=== PATIENT | male | born 1975 | race Caucasian/White ===

== ENCOUNTER 2022-10-24 19:15 | Inpatient (IN) | payer OTHER ==
[~2022-10-24] VITALS: Ht 188 cm; Wt 136.5 kg
[2022-10-24] MEDS ORDERED: SODIUM CHLORIDE 0.9% 1,000 ML IV ONE (19:45)
[2022-10-24] MEDS ORDERED: ADENOSINE 6 MG/2 ML INJ IV ONE ×5 (19:45→21:03)
[2022-10-24 20:15] LABS: Basophils # (auto) 0.1 10 ^3/uL (0-0.2); Basophils % (auto) 0.5 % (0.0-2.0); Eosinophils # (auto) 1.1 10 ^3/uL (0-0.8); Eosinophils % (auto) 10.7 % (0.0-7.0); Hematocrit 38.8 % (41.0-53.0); Hemoglobin 12.8 g/dL (13.5-17.5); Lymphocytes # (auto) 2.5 10 ^3/uL (0.4-5.4); Lymphocytes % (auto) 24.3 % (10.0-50.0); Mean Corpuscular Hemoglobin 29.5 pg (28.0-32.0); Mean Corpuscular Hgb Conc. 33.1 g/dL (32.0-36.0); Mean Corpuscular Volume 89.3 fL (80.0-100.0); Monocytes # (auto) 0.7 10 ^3/uL (0-1.3); Monocytes % (auto) 6.6 % (0.0-12.0); Neutrophils % (auto) 57.9 % (37.0-80.0); Red Blood Cells 4.35 10^6/uL (4.5-5.90); Red Cell Distribution Width 13.2 % (11.8-14.3); White Blood Cell 10.3 10^3/uL (4.4-10.8)
[2022-10-24] MEDS ORDERED: dilTIAZem 25 MG/5 ML VIAL IV ONE ×4 (20:15→21:30)
[2022-10-24 20:35] LABS: INR 0.97 (0.9-1.15); Partial Thromboplastin Time 28.5 sec (24.6-33.4)
[2022-10-24] MEDS ORDERED: AMIODARONE HCL (50 MG/ ML) 3 ML VIAL IV ONE ×3 (20:37→21:58)
[2022-10-24] MEDS ORDERED: LORazepam 2MG/ML-1ML VIAL IV ONE (20:45)
[2022-10-24] MEDS ORDERED: AMIODARONE HCL 150 MG in D5W 5% 100 ML IV ONE ×2 (20:45→21:45)
[2022-10-24 21:16] LABS: Albumin 3.5 g/dL (3.4-5.0); Blood Urea Nitrogen 10 mg/dL (7-18); Chloride 109 mmol/L (98-107); Glucose 87 mg/dL (74-106); Potassium 4.1 mmol/L (3.5-5.1); Sodium 142 mmol/L (136-145)
[2022-10-24 21:18] LABS: Alanine Aminotransferase 22 U/L (16-61); Anion Gap 10 (5-15); Aspartate Aminotransferase 9 U/L (15-37); BUN/Creatinine Ratio 9.4; Carbon Dioxide 23 mmol/L (21-32); GFR African American 97 mL/min; GFR Non-African American 80 mL/min
[2022-10-24 21:20] LABS: Alkaline Phosphatase 78 U/L (45-117); Bilirubin, Total 0.3 mg/dL (0.2-1.0); Total Protein 6.9 g/dL (6.4-8.2)
[2022-10-24] MEDS ORDERED: MORPHINE SULFATE 4 MG/ML SYR/VIAL IV ONE (21:30)
[2022-10-24] MEDS ORDERED: methylPREDNISolone SOD SUCC 125 MG/2 ML VL IV ONE (21:30)
[2022-10-24] MEDS ORDERED: ONDANSETRON HCL 4 MG/2 ML VIAL IV ONE (21:30)
[2022-10-24] MEDS ORDERED: ENOXAPARIN SOD 100 MG/1 ML SYRINGE SC ONE (21:45)
[2022-10-24] MEDS ORDERED: AMIODARONE 450mg/250ml AE 250 ML IV SCH (21:45)
[2022-10-24 22:16] LABS: Urine Bacteria MOD /hpf (None Seen); Urine Blood Negative /uL (Negative); Urine Specific Gravity 1.007 (1.001-1.035); Urine WBC 9 /hpf (0 - 3)
[2022-10-24 22:23] LABS: Alcohol, Urine < 3.0 mg/dL (0-10); Amphetamine Screen, Urine NEGATIVE (NEGATIVE); Barbiturate Scree,Urine NEGATIVE (NEGATIVE); Benzodiazephine Screen, Urine NEGATIVE (NEGATIVE); Cannabinoid Screen, Urine NEGATIVE (NEGATIVE); Cocaine Screen, Urine NEGATIVE (NEGATIVE); Opiate Scree,Urine NEGATIVE (NEGATIVE); Phencyclidine Screen, Urine NEGATIVE (NEGATIVE)
[2022-10-24] MEDS ORDERED: TEMAZEPAM 15 MG CAP PO PRN (23:15)
[2022-10-24] MEDS ORDERED: MORPHINE SULFATE INJ 2 MG/ml SYRG IV PRN (23:15)
[2022-10-24] MEDS ORDERED: ONDANSETRON HCL 4 MG/2 ML VIAL IV PRN (23:15)
[2022-10-24] MEDS ORDERED: NITROGLYCERIN 0.4 MG SL TAB SL PRN (23:15)
[2022-10-25] MEDS ORDERED: dilTIAZem 25 MG/5 ML VIAL IV ONE (02:00)
[2022-10-25] MEDS: AMIODARONE 450mg/250ml AE 250 ML IV SCH ×2 (04:25→07:45)
[2022-10-25 06:11] LABS: Anion Gap 9 (5-15); BUN/Creatinine Ratio 9.3; Blood Urea Nitrogen 9 mg/dL (7-18); Calcium 8.7 mg/dL (8.5-10.1); Carbon Dioxide 22 mmol/L (21-32); Chloride 113 mmol/L (98-107); GFR African American 107 mL/min; GFR Non-African American 89 mL/min; Glucose 91 mg/dL (74-106); Potassium 4.2 mmol/L (3.5-5.1); Sodium 144 mmol/L (136-145)
[2022-10-25] MEDS: ACETAMINOPHEN 325 MG TAB PO PRN ×3 (06:27→21:06)
[2022-10-25] MEDS ORDERED: dilTIAZem 125mg/125ml BAG KIT 125 ML IV SCH (08:45)
[2022-10-25] MEDS ORDERED: METOPROLOL TARTRATE 1MG/1ML-5ML VIAL IV ONE (08:45)
[2022-10-25] MEDS: LEVALBUTEROL HCL 1.25 MG/3 ML NEB NEB SCH ×4 (09:00→23:43)
[2022-10-25] MEDS ORDERED: ENOXAPARIN SOD 40 MG/0.4 ML SYRINGE SC SCH (10:00)
[2022-10-25] MEDS: BUDESONIDE (INHALATION) 0.5 MG/2 ML NEB NEB SCH ×2 (11:30→20:24)
[2022-10-25] MEDS: cefTRIAXone 1GM/50ML D5W 50 ML IV SCH (12:02)
[2022-10-25] MEDS: PANTOPRAZOLE 40 MG TAB PO SCH (12:04)
[2022-10-25] MEDS: ENOXAPARIN SOD 150 MG/1 ML SYRINGE SC SCH ×2 (12:08→23:26)
[2022-10-25] MEDS ORDERED: DIGOXIN (250MCG/ML) 2 ML AMPULE IV ONE (12:30)
[2022-10-25 13:25] VITALS: BP 123/61
[2022-10-25 13:55] LABS: Magnesium 2.1 mg/dL (1.6-2.6)
[2022-10-25] MEDS ORDERED: ADENOSINE 6 MG/2 ML INJ IV ONE ×2 (14:15)
[2022-10-25] MEDS ORDERED: fentaNYL CITRATE 100 MCG/2 ML VL IV ONE ×2 (14:45→15:00)
[2022-10-25] MEDS ORDERED: ONDANSETRON HCL 4 MG/2 ML VIAL IV ONE (14:45)
[2022-10-25] MEDS ORDERED: MIDAZOLAM HCL 2MG/2ML 2ml VIAL (1mg/ml) IV ONE ×3 (14:45→17:00)
[2022-10-25] MEDS ORDERED: LIDOCAINE VISCOUS 2% 15ML UD PO ONE (14:45)
[2022-10-25] MEDS ORDERED: MIDAZOLAM HCL 2MG/2ML 2ml VIAL (1mg/ml) ONE (15:41)
[2022-10-25] MEDS ORDERED: AMIODARONE HCL 200 MG TAB PO ONE (16:00)
[2022-10-25] MEDS ORDERED: ATORVASTATIN 20 MG TAB PO SCH (22:00)
[2022-10-25] MEDS: AMIODARONE HCL 200 MG TAB PO SCH (23:25)
[2022-10-26 03:39] VITALS: BP 124/84
[2022-10-26 05:00] VITALS: BP 118/85
[2022-10-26 05:32] LABS: BUN/Creatinine Ratio 10.6; Calcium 8.8 mg/dL (8.5-10.1); Potassium 4.3 mmol/L (3.5-5.1)
[2022-10-26] MEDS: LEVALBUTEROL HCL 1.25 MG/3 ML NEB NEB SCH (06:00)
[2022-10-26] MEDS: ACETAMINOPHEN 325 MG TAB PO PRN (06:17)
[2022-10-26 09:15] VITALS: BP 116/78
[2022-10-26] MEDS: ENOXAPARIN SOD 150 MG/1 ML SYRINGE SC SCH (09:52)
[2022-10-26] MEDS: cefTRIAXone 1GM/50ML D5W 50 ML IV SCH (09:54)
[2022-10-26] MEDS: AMIODARONE HCL 200 MG TAB PO SCH (09:54)
[2022-10-26] MEDS: PANTOPRAZOLE 40 MG TAB PO SCH (10:00)
[2022-10-26] MEDS ORDERED: DIGOXIN 0.125 MG TAB PO SCH (10:00)
[2022-10-26] MEDS ORDERED: METOPROLOL SUCCINATE XL 50 MG TAB PO SCH (10:00)
[2022-10-26 13:27] VITALS: BP 113/81
[2022-10-26] MEDS ORDERED: APIX5TAB PO (15:41)
[2022-10-26] MEDS ORDERED: AMIO200T4 PO (15:41)
[2022-10-26] MEDS ORDERED: ATOR20TA50 PO (15:41)
[2022-10-26] MEDS ORDERED: METO25TA93 PO (15:41)
[2022-10-26 16:49] VITALS: BP 123/65
[2022-10-26] MEDS ORDERED: APIXABAN 5 MG TAB PO SCH (22:00)
[2022-10-27] MEDS ORDERED: ASPirin 81 mg TAB PO SCH (10:00)
== END 2022-10-26 17:00 | disposition home or self-care (01) | DRG 309 ==
LOC: ER 19:18 → TELE 23:10 → TELE-EAST 10-25 21:50
PROVIDERS: ADMIT Nurse Practitioner; ATTEND Internal Medicine
PROC: 5A2204Z Restoration of Cardiac Rhythm, Single (ICD-10-PCS; principal; 2022-10-25)
PROC: B246ZZ4 Ultrasonography of Right and Left Heart, Transesophageal (ICD-10-PCS; 2022-10-25)
DX: I48.92 Unspecified atrial flutter (principal); D68.69 Other thrombophilia; N39.0 Urinary tract infection, site not specified; I47.1 Supraventricular tachycardia; E66.01 Morbid (severe) obesity due to excess calories; I10 Essential (primary) hypertension; E78.5 Hyperlipidemia, unspecified; R73.03 Prediabetes; J45.909 Unspecified asthma, uncomplicated; G89.29 Other chronic pain; M54.9 Dorsalgia, unspecified; F10.90 Alcohol use, unspecified, uncomplicated; Z68.38 Body mass index [BMI] 38.0-38.9, adult; Z71.3 Dietary counseling and surveillance; Z20.822 Contact with and (suspected) exposure to COVID-19
CPT/HCPCS: 36415; 71045; 80048; 80053; 80061; 80307; 81001; 83036; 83735; 83880; 84439; 84443; 84484; 85025; 85610; 85730; 87426; 93005; 93306; 93312; 94640; 96365; 96367; 96372; 96375; 96376; 99291; 99292; G0378; J0153; J0696; J2250; J2405; J7060